=== PATIENT | female | born 1985 ===

== ENCOUNTER 2016-08-30 22:17 | Emergency (ER) | payer BC, MEDICAID ==
[2016-08-30 22:35] VITALS: BP 113/67; PULSE 98; RESP 16; TEMP 98.8; O2SAT 100
[2016-08-30] MEDS ORDERED: Lactated Ringer's 1,000 ML IV STA (22:54)
[2016-08-30 23:29] LABS: BASO # 0.1 K/uL (0.0-0.2); BASO % 0.5 % (0.0-2.0); EOS % 0.1 % (0.0-4.0); HEMATOCRIT 36.3 % (34.0-47.0); LYMPH # 1.2 K/uL (1.0-4.3); LYMPH % 10.3 % (20.0-40.0); MEAN CELL VOLUME 87.4 fl (81.0-99.0); MEAN CORPUSCULAR HEMOGLOBIN 29.8 pg (27.0-31.0); MEAN CORPUSCULAR HGB CONC 34.1 g/dL (33.0-37.0); MEAN PLATELET VOLUME 8.3 fl (7.2-11.7); MONO # 0.8 K/uL (0.0-0.8); MONO % 6.4 % (0.0-10.0); NEUT # 9.7 K/uL (1.8-7.0); NEUT % 82.7 % (50.0-75.0); RED CELL DISTRIBUTION WIDTH 12.5 % (11.5-14.5); WHITE BLOOD COUNT 11.7 K/uL (4.8-10.8)
[2016-08-30] MEDS ORDERED: Dextrose 5%/Lactated Ringer's 1,000 ML IV SCH (23:30)
[2016-08-30 23:40] LABS: ALB/GLOB RATIO 1.1 (1.0-2.1); ALKALINE PHOSPHATASE 73 U/L (38-126); ALT/SGPT 29 U/L (9-52); AST/SGOT 22 U/L (14-36); BILIRUBIN,TOTAL 0.2 mg/dl (0.2-1.3); BLOOD UREA NITROGEN 6 mg/dl (7-17); CALCIUM 9.6 mg/dL (8.4-10.2); CARBON DIOXIDE 21 mmol/L (22-30); CHLORIDE 106 mmol/L (98-107); GFR AFRICAN-AMERICAN > 60; GLUCOSE,RANDOM 108 mg/dL (65-105); MAGNESIUM 1.9 MG/DL (1.6-2.3); PHOSPHOROUS 3.2 mg/dl (2.5-4.5); POTASSIUM 3.7 MMOL/L (3.6-5.0); SODIUM 136 mmol/l (132-148); TOTAL PROTEIN 7.3 G/DL (6.3-8.2)
--- NOTE | 2016-08-31 00:15 | ED PDOC ---
HPI: Abdomen Time Seen by Provider: 08/30/16 22:51 Chief Complaint (Nursing): GI Problem Chief Complaint (Provider): Gi Problem History Per: Patient History/Exam Limitations: no limitations Current Symptoms Are (Timing): Still Present Associated Symptoms: Nausea, Vomiting. denies: Diarrhea Exacerbating Factors: Food Additional History Per: Patient Additional Complaint(s): 31 year old Neelima Velasquez presents to the ED with chief complaints of Vomiting and Nausea. Currently 12 weeks, has been vomiting the whole , but for the first time feels weak with and having intractable vomit. w 1 termination and 2 miscarriage. The patient attends [facility] and takes pre aziza vitamins. Was offered antiemetics by her OB but declined. Abnormal Vaginal Bleeding: No Past Medical History Reviewed: Historical Data, Nursing Documentation, Vital Signs Vital Signs: Last Vital Signs Temp 98.8 F 08/30/16 22:32 Pulse 98 H 08/30/16 22:32 Resp 16 08/30/16 22:32 BP 113/67 08/30/16 22:32 Pulse Ox 100 09/01/16 17:16 - Medical History PMH: No Chronic Diseases - Surgical History Surgical History: No Surg Hx - Family History Family History: States: Unknown Family Hx - Social History Current smoker - smoking cessation education provided: No - Home Medications Home Medications: Ambulatory Orders Medication Instructions Recorded Doxylamine/Pyridoxine HCl (B6) 2 each PO DAILY 60 Days 08/31/16 [[address] Dr 10-10 mg Tablet] - Allergies Allergies/Adverse Reactions: Allergies Allergy/AdvReac Type Severity Reaction Status Date / Time No Known Allergies Allergy Verified 03/15/15 10:30 Review of Systems ROS Statement: Except As Marked, All Systems Reviewed And Found Negative Constitutional: Negative for: Fever, Chills ENT: Positive for: Other (Tachy Mucus Membrane) Cardiovascular: Negative for: Chest Pain Respiratory: Negative for: Shortness of Breath Gastrointestinal: Positive for: Nausea, Vomiting, Abdominal Pain. Negative for : Diarrhea, Constipation Neurological: Positive for: Headache (Mild) Physical Exam - Reviewed Nursing Documentation Reviewed: Yes Vital Signs Reviewed: Yes - Physical Exam Appears: Positive for: Well, No Acute Distress Head Exam: Positive for: ATRAUMATIC, NORMAL INSPECTION, NORMOCEPHALIC Skin: Positive for: Warm, Dry Eye Exam: Positive for: EOMI, PERRL ENT: Positive for: Other (Tachy Mucus Membrane). Negative for: Pharyngeal Erythema, Tonsillar Exudate Neck: Positive for: Painless ROM, Supple Cardiovascular/Chest: Positive for: Regular Rate, Rhythm. Negative for: Murmur Respiratory: Positive for: Normal Breath Sounds. Negative for: Wheezing Gastrointestinal/Abdominal: Positive for: Soft. Negative for: Tenderness, Mass , Distended, Guarding, Rebound Back: Positive for: Normal Inspection. Negative for: Decreased ROM Extremity: Positive for: Normal ROM. Negative for: Deformity Lymphatic: Negative for: Adenopathy Neurologic/Psych: Positive for: Alert, Oriented. Negative for: Motor/Sensory Deficits - Laboratory Results Result Diagrams: 08/30/16 23:23 08/30/16 23:23 - ECG O2 Sat by Pulse Oximetry: 100 (RA) Pulse Ox Interpretation: Normal Medical Decision Making Medical Decision Makin: Initial Impression: Vomiting with with differentials of dehydration, electrolytes abnormalities, gastritis. Initial Plan: * Beta HGC Quantitative * Comp metabolic panel * Magnesium * Phosphorous * ED Urine POC * ED U-DIP * CBC With differentials * Dextrose 5% Lactated Ringers 1000ml * Lactated ringers 1000ml * Acetaminophen 975mg * Zofran 4mg * IV Insertion * Re-Eval Scribe~Attestation: Documented by Cheryl Shine acting as a~scribe~for Dr. Karen Cruz MD. ~ Provider~Scribe~Attestation: All medical record entries made by the~Scribe~were at my direction and personally dictated by me. I have reviewed the chart and agree that the record accurately reflects my personal performance of the history, physical exam, medical decision making, and the department course for this patient. I have also personally directed, reviewed, and agree with the discharge instructions and disposition. Disposition - Clinical Impression Clinical Impression: Hyperemesis gravidarum - Disposition Disposition: Transfer of Care Disposition Time: 00:00 Condition: STABLE Prescriptions: Doxylamine/Pyridoxine HCl (B6) [John Dr 10-10 mg Tablet] 2 each PO DAILY 60 Days Patient Signed Over To: Gabbie Montes De Oca
--- NOTE | 2016-08-31 00:45 | ED PDOC ---
- Laboratory Results Result Diagrams: 08/30/16 23:23 08/30/16 23:23 - ECG O2 Sat by Pulse Oximetry: 100 (RA) - Progress Re-evaluation Time: 03:00 Condition: Re-examined, Improved Medical Decision Making Medical Decision Making: Patient signed out from Dr. Cruz at 0000 pending re-eval. Scribe Attestation: Documented by Cheryl Shine acting as a scribe for Gabbie Montes De Oca MD. Provider Scribe Attestation: All medical record entries made by the Scribe were at my direction and personally dictated by me. I have reviewed the chart and agree that the record accurately reflects my personal performance of the history, physical exam, medical decision making, and the department course for this patient. I have also personally directed, reviewed, and agree with the discharge instructions and disposition. Disposition Doctor Will See Patient In The: Office Counseled Patient/Family Regarding: Studies Performed, Diagnosis, Need For Followup - Clinical Impression Clinical Impression: Hyperemesis gravidarum - POA Present On Arrival: None - Disposition Referrals: [facility] [Outside] Disposition: Routine/Home Disposition Time: 03:17 Condition: GOOD Prescriptions: Doxylamine/Pyridoxine HCl (B6) [John Bennett 10-10 mg Tablet] 2 each PO DAILY 60 Days Instructions: Hyperemesis Gravidarum (ED)
== END 2016-08-31 03:38 | disposition home or self-care (01) ==
LOC: H.ER 22:17
DX: O21.0 Mild hyperemesis gravidarum (principal)
CPT/HCPCS: 80053; 83735; 84100; 84702; 85025; 96360; 96374; 99283; J2405; J7120